=== PATIENT | male | born 1960 | race Caucasian/White ===

== ENCOUNTER 2024-05-26 13:57 | Outpatient (AMB) | payer OTHER, SELFPAY ==
[2024-05-26 14:09] VITALS: BP 138/90; PULSE 62; TEMP 36.5; O2SAT 95; BMI 21.7
--- NOTE | 2024-05-26 14:09 | AM.OFFWIN_ITS ---
Intake Vital Signs 05/26/24 14:09 Height 6 ft 3 in Weight 173 lb 4 oz BMI 21.7 BP 138/90 H Blood Pressure Location Lt brachial Position Sitting Pulse 62 Pulse Source Pulse Oximeter Temp 97.7 F Temp Source Oral Pulse Oximetry (%) 95 Oxygen Delivery Method Room Air Intake Visit Reasons: EP High BP/no symptoms Intake Note: Pt is here today for high blood pressure. Pt had an at home blood pressure taking and mention to him that he has high blood pressure. Also pt will like kidney disease test. Allergies No Known Allergies Allergy (Verified 05/26/24 14:09) HPI EP High BP/no symptoms HPI Details This note is constructed using voice recognition software. While every effort has been made to ensure accuracy, nurse gynecology errors may have been included. The patient is a 63 year old male who presents to the clinic today with concerns for high blood pressure. Patient reports that he has no previous history of h igh blood pressure, had an insurance evaluation in his home, with slightly elevated blood pressure couple of months ago. He has been checking his blood pressure ever since, and has had blood pressures ranging from 120/80 to 150/90. He denies chest pain, palpitations, lightheadedness, new headaches. He has a primary care appointment scheduled for August, but has not been seen in the past several years. He has no family history of cardiac disease. [facility] Social History (Updated 08/26/20 @ 09:39 by Charles Romero PA-C) Alcohol intake: current Alcohol intake frequency: a few times a month Current occupational status: employed Current occupation: [employer]. Review of Systems Const All systems reviewed & are unremarkable except as noted in HPI and below Physical Exam Vital Signs: Last Vital Signs Temp 97.7 F 05/26/24 14:09 Pulse 62 05/26/24 14:09 BP 138/90 H 05/26/24 14:09 Pulse Ox 95 05/26/24 14:09 Oxygen Delivery Method Room Air 05/26/24 14:09 BMI result Body Mass Index 21.7 Const General: cooperative, healthy appearing, comfortable, no acute distress and well developed Orientation/consciousness: patient oriented x3 Limitations: no limitations Neck Neck: Yes normal visual inspection and Yes full ROM Resp Effort & Inspection: normal respiratory effort and able to speak in complete sentences Auscultation: clear to auscultation bilaterally Cardio Rate: regular rate Rhythm: regular rhythm Heart sounds: normal S1 and S2 Skin General skin exam: no rashes or lesions noted Neuro General: patient oriented x3 Extrem General: Yes normal to inspection Assessment & Plan Assessment & Plan (1) Elevated BP without diagnosis of hypertension: Code(s): R03.0 - Elevated blood-pressure reading, without diagnosis of hypertension Plan: Advised ongoing monitoring of blood pressure at home, reviewed appropriate clinical blood pressure monitoring. Advised patient to avoid salt, increase hy dration, and begin daily walks to help facilitate. Advised patient to keep appointment with PCP in August as previously scheduled. Plan See above for full details and plan. Coding Level of Care Code Est Pt Level 3 (73605) Diagnoses Elevated BP without diagnosis of hypertension R03.0
== END 2024-05-26 15:07 | disposition home or self-care (01) ==
PROVIDERS: PCP Physician Assistant; Visit Provider Registered Nurse
DX: R03.0 Elevated blood-pressure reading, without diagnosis of hypertension (principal)

== ENCOUNTER 2024-08-19 10:57 | Outpatient (AMB) | payer MEDICARE, SELFPAY ==
--- NOTE | 2024-08-19 11:01 | MHC.PC.OV ---
Vital Signs 08/19/24 11:02 Height 6 ft 3 in Weight 176 lb 2 oz BMI 22.0 BP 128/76 Blood Pressure Location Lt brachial Position Sitting Pulse 70 Pulse Source Pulse Oximeter Temp 96.9 F Temp Source Temporal Artery Scan Pulse Oximetry (%) 98 Oxygen Delivery Method Room Air Intake Visit Reasons: New Appt New Patient requesitng an PE Saw Boss Required: No Accompanied by: Self / Same As Patient Allergies No Known Allergies Allergy (Verified 08/19/24 11:18) Medication List - Last Reconciled 08/19/24 by Charles Romero PA-C No Known Home Meds Tobacco use date assessed: 08/19/24 Fall risk assessment: 1 Fall in past year Last assessed Fall Risk: 08/19/24 Dental Screening Dental Screen Date: 08/19/24 Did you have a dental visit in the last 12 months?: Yes Did you have a dental problem in the last 6 months where you did not have access to dental care?: No Was dental information given to patient?: Patient has dentist HPI New Appt New Patient requesitng an PE HPI Details Patient is a 64-year-old male here today for annual physical. Patient does not have any significant past medical history. Has had his Cologuard done in 2019 which was negative and needed a repeat 3 years. He reports doing stool card (FIT test) with [facility] and reports it was negative. Concern--> reports having right wrist pain particularly when doing fine motor activities with his right upper extremity. 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 .. Noturia: has somewhat bothered by nocturia and has been trying supplements that have not worked. .. Vaccine: Uninterested in vaccines [facility] Surgical History S/P ACL repair Family History Mother No problems noted. Father Kidney disease Daughter No problems noted. Social History Housing: House Alcohol intake: current Alcohol intake frequency: holidays/special occasions only Alcohol type: beer Patient Tobacco Use Status: Never used Tobacco e-Cigarette/Vaping Use: Never Used Second Hand Smoke Exposure: No service: No Current occupational status: employed Current occupation: [employer]. Cognitive needs: No Hearing needs: Yes Vision needs: Yes Questionnaire PHQ-9 Over the last 2 weeks, how often have you been bothered by any of the following problems? 1. Little interest or pleasure in doing things: not at all 2. Feeling down, depressed, or hopeless: not at all 3. Trouble falling or staying asleep, or sleeping too much: not at all 4. Feeling tired or having little energy: not at all 5. Poor appetite or overeating: not at all 6. Feeling bad about yourself - or that you are a failure or have let yourself or your family down: not at all 7. Trouble concentrating on things, such as reading the newspaper or watching television: not at all 8. Moving or speaking so slowly that other people could have noticed. Or the opposite - being so fidgety or restless that you have been moving around a lot more than usual: not at all 9. Thoughts that you would be better off or of hurting yourself in some way: not at all Total score: 0 Depression Screening Interpretation: Negative Depression Screening Done: Yes 32890 - PHQ-9 Billing: Yes Source: Developed by Drs. Avila Deleon, Marge Dawson, Teto Wilson and colleagues, with an educational barbara from [employer]. Thrive Questionnaire Date Thrive assessed: 08/19/24 I am a: Patient What is your living situation today?: I have a steady place to live Within the past 12 months, did the food you bought not last and you didn't have the money to get more?: Never true Within the past 12 months, did you worry whether your food would run out before you got money to buy more?: Never true Do you have trouble paying for medicines?: I choose not to answer this question Do you have trouble getting transportation to medical appointments?: No Do you have trouble paying your heating and electricity bill?: No Do you have trouble taking care of your child, family member or friend?: No Do you have trouble with day-to-day activities such as bathing, preparing meals, shopping, managing finances, etc.?: No Are you currently unemployed and looking for a job?: No Are you interested in more education?: I choose not to answer this question Please select the resources that you would like help with: None Currently or been in a relationship where the following occur: No concerns reported THRIVE Score: 0 AUDIT C Alcohol Use Questionnaire (AUDIT-C) 1. How often do you have a drink containing alcohol?: Monthly or less 2. How many drinks containing alcohol do you have on a typical day when you are drinking?: 1 or 2 3. How often do you have six or more drinks on one occasion?: Never Total Score: 1 DEEDEE-7 AMB Questionnaire DEEDEE-7 Date DEEDEE - 7 assessed: 08/19/24 Feeling nervous, anxious, or on edge: 0 = Not at all Not being able to stop or control worryin = Not at all Worrying too much about different things: 0 = Not at all Trouble relaxin = Not at all Being so restless that it is hard to sit still: 0 = Not at all Becoming easily annoyed or irritable: 0 = Not at all Feeling afraid as if something awful might happen: 0 = Not at all Total DEEDEE-7 score (0-4 normal; 5-9 mild; 10-14 moderate; 15-21 severe): 0 Source: Developed by Drs. Avila Deleon, Marge Dawson, Teto Wilson and colleagues, with an educational barbara from [employer]. DEEDEE-7 Assessment Billing DEEDEE-7 Assessment Tool: DEEDEE-7 Assessment 22697 Review of Systems Const Denies body aches, Denies chills, Denies excessive sweating, Denies fatigue, Denies fever(s) and Denies headache(s) Eyes Denies blurry vision ENT Denies dysphagia, Denies vertigo, Denies dizziness, Denies headache(s), Denies hearing loss and Denies tinnitus Card Denies chest pain, Denies chest pain with activity, Denies syncope, Denies irregular heart rhythm and Denies dyspnea Resp Denies chest congestion, Denies cough, Denies hemoptysis, Denies dyspnea and Denies wheezing GI Denies abdominal pain, Denies melena, Denies hematochezia, Denies coffee ground emesis, Denies dysphagia, Denies diarrhea, Denies nausea and Denies vomiting Denies difficulty urinating, Denies dysuria, Denies urinary frequency, Denies urinary hesitancy and Denies urinary urgency Musc Denies arthralgias, Denies limited range of motion, Denies muscle cramps and Denies muscle weakness Skin/Breast Denies rash and Denies skin ulcer Neuro Denies Abnormal speech present, Denies confusion, Denies vertigo, Denies dizziness, Denies syncope, Denies headache(s), Denies memory loss and Denies seizure-like activity Psych Denies anxiety, Denies confusion, Denies depression, Denies memory loss, Denies panic attacks and Denies paranoia Endo Denies excessive sweating, Denies fatigue, Denies flushing, Denies polydipsia and Denies polyuria Aller/Immun Denies wheezing Physical exam (Primary Care) Vital Signs: Last Vital Signs Temp 96.9 F 08/19/24 11:02 Pulse 70 08/19/24 11:02 BP 128/76 08/19/24 11:02 Pulse Ox 98 08/19/24 11:02 Oxygen Delivery Method Room Air 08/19/24 11:02 BMI result Body Mass Index 22.0 Tobacco/Smoking Status: Tobacco use Status Tobacco use date assessed 08/19/24 08/19/24 11:15 Patient Tobacco Use Status Never used Tobacco 08/19/24 11:22 e-Cigarette/Vaping Use Never Used 08/19/24 11:22 PHQ-9: PHQ-9 Score PHQ-9: Total score 0 08/19/24 11:20 Depression Screening Interpretation: Negative Thrive Assessment: Date of Thrive Assessment Date Thrive assessed 08/19/24 08/19/24 11:15 Currently or been in a relationship where the following occur: No concerns reported Const General: cooperative, comfortable, no acute distress, alert and awake; No confusion Orientation/consciousness: oriented to person, oriented to place, patient oriented x3 and No confusion HENMT Head: Yes normocephalic Ears: external ears normal and TM's normal bilaterally Face and sinus: No sinus tenderness Mouth: Normal oral and palatal mucosa present and tongue normal Teeth and gingiva: dentition normal and gingiva normal Throat: Yes posterior oropharynx normal, Yes tonsils normal and Yes uvula midline Eyes Conjunctivae: conjunctivae normal Sclerae: sclerae normal Pupils: Equal, round and reactive pupils present EOM: EOMs intact bilaterally Direct Ophthalmoscopy: No no photophobia Neck Neck: Yes no lymphadenopathy, No tender and Yes no JVD Thyroid: Thyroid normal Carotids: no bruits Chest Chest palpation & inspection: no tenderness Resp Effort & Inspection: normal respiratory effort, no audible wheezes, not labored and no stridor Auscultation: no crackles, no rales, no rhonchi and no wheezes Cardio Jugular venous distension: no JVD Rate: regular rate, not bradycardic and not tachycardic Rhythm: regular rhythm Bruits: no carotid bruits Peripheral pulses: Peripheral pulses 2+ throughout GI Inspection: Yes normal to inspection, No abdominal wall ecchymosis and No visible herniation Palpation (GI): Soft to palpation, nontender, no guarding, not rigid and No hepatosplenomegaly present Auscultation: normoactive bowel sounds General: Yes no CVA tenderness Back/Spine/Pelvis Back: no CVA tenderness and No back tenderness Cervical Spine: cervical ROM normal Thoracic/Lumbar Spine: thoracic and lumbar spine normal to inspection, straight leg raise negative bilaterally, No thoraco-lumbar ROM limited and No lumbar spinal tenderness Skin Lesions: no lesions Rashes: no rashes Wounds: no wounds Neuro General: oriented to person, oriented to place, patient oriented x3, CN's II-XI intact bilaterally and No confusion Cranial nerves: Yes Equal, round and reactive pupils present and Yes Normal accommodation reflex present Cognition (Neuro): normal cognition Speech: No Abnormal speech present Gait exam (Neuro): Normal gait present Motor exam (neuro): 5/5 motor strength present throughout Extrem Right upper extremity: full ROM; no cyanosis Left upper extremity: full ROM; no cyanosis Right lower extremity: no edema Left lower extremity: no edema Psych Appearance: grossly normal Mental Status: mental status grossly normal Affect: normal affect Attitude: cooperative Thought process: Normal thought process present Coding Level of Care Code New Pt Prev Care >65yr (29221) Diagnoses Annual physical exam Z00. Right wrist tendinitis M77.8 Additional Codes DEEDEE-7 Assessment Billing - DEEDEE-7 Assessment Tool: DEEDEE-7 Assessment 24878 ([id number]) PHQ-9 - 09231 - PHQ-9 Billing: Yes ([id number]) Assessment & Plan Assessment & Plan (1) Annual physical exam: Code(s): Z00. - Encounter for general adult medical examination without abnormal findings Category: Medical Plan: As per HPI (2) Right wrist tendinitis: Code(s): M77.8 - Other enthesopathies, not elsewhere classified Category: Medical Plan: Has been experiencing wrist tendinitis to which she will try [id number] NSAIDs. Has upcoming appointment with a orthopedic practice in [place]. Orders: Orders Prostate Specific Antigen Scr Today Z12.5 - Encounter for screening for malignant neoplasm of prostate, Z13.1 - Encounter for screening for diabetes mellitus Complete Blood Count no Diff Today Z13.1 - Encounter for screening for diabetes mellitus Comprehensive [place]. Panel Fast Today Z13.1 - Encounter for screening for diabetes mellitus
[2024-08-19 11:02] VITALS: BP 128/76; PULSE 70; TEMP 36.1; O2SAT 98; BMI 22.0
== END 2024-08-19 11:40 | disposition home or self-care (01) ==
PROVIDERS: PCP Physician Assistant; Visit Provider Physician Assistant
DX: Z00.00 Encounter for general adult medical examination without abnormal findings (principal); M77.8 Other enthesopathies, not elsewhere classified

== ENCOUNTER → 2024-08-19 10:57 | Outpatient (BNVA) | payer MEDICARE, SELFPAY | PROVIDERS: PCP Physician Assistant; Visit Provider Physician Assistant | DX: Z00.00 Encounter for general adult medical examination without abnormal findings (principal); M77.8 Other enthesopathies, not elsewhere classified | CPT/HCPCS: 96127; 99387 ==

== ENCOUNTER 2024-08-28 08:53 | Outpatient (REF) | payer MEDICARE, SELFPAY ==
[2024-08-28 09:41] LABS: Hemoglobin 14.7 g/dl (14.0-18.0); Mean Corpuscular Hemoglobin 30.1 pg (27.0-33.0); Mean Corpuscular Volume 86.1 fL (80.0-98.0); Mean Platelet Volume 10.7 fL (9.4-12.4); Platelet Count 164 X10*3/uL (160-400); Red Blood Count 4.88 X10*6/uL (4.60-5.80); Red Cell Distribution Width 11.9 % (11.0-16.0); White Blood Count 4.3 X10*3/uL (4.8-10.8)
--- OUTSIDE RECORDS SUMMARY | 2024-08-28 09:50 | XMS_ITS | Data Portability ---
Author Organization [facility], , [facility] Address [address] [place] [address] Assessment No assessment recorded. Plan of Treatment Reminders Order Date Submit Date Provider Last Modified By Organization Details Last Modified Time Details Appointments None record ed. Lab None record ed. Referral None record ed. Procedures None record ed. Surgeries None record ed. Imaging None record ed. Medication Orders None record ed. Patient TargetsNo targets recorded. Patient Instructions Encounter Date Encounter Id Patient Instructions Last Modified By Organization Details Last Modified Time 02/12/2015 [id number] Exam started in AM and completed in PM. Astigmatism and presbyopia. Good ocular health. Discussed eye vitamins and sunglasses per patient request. FU 1 year. [email or web address] Not available 02/12/2015 16:16:42 Reason for Referral None Reported. 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 3 03:09:07 Presbyopia 13990819 Active 2004 Fito Castillo, OD [address] [place] [address], [id number] , [facility] 5 16:16:42 Problem Notes None recorded. Procedures Surgical History Date Name Laterality Status Provider Name and Address Organization Details Recorded Time 02/12/2015 Refraction completed Leidy Sanchez MA [facility] 02/12/2015 08:19:56 Imaging Results None recorded. Procedure Notes None recorded. Medical Equipment None Reported. Allergies No known drug allergies Medications Not known to be on any medication Vitals None Recorded Social History None recorded. Functional Status None recorded. Mental Status None recorded. Family History Nothing Reported. Medical History No medical history recorded. Past Encounters Encounter ID Performer Location Encounter Start Date Encounter Closed Date Diagnosis/Indication Diagnosis SNOMED-CT Code Diagnosis ICD10 Code Diagnosis Note [id number] [facility], [facility] [place] [address] 07/05/2004 09:52:36 07/05/2004 14:50:34 [id number] [facility], [facility] [place] [address] 08/20/2006 16:12:44 08/21/2006 08:03:04 [id number] [facility], [facility] [place] [address] 10/31/2007 14:04:42 11/01/2007 09:01:15 [id number] [facility], [facility] [place] [address] 02/12/2015 08:13:10 03/09/2015 12:10:36 Ophthalmic examination and evaluation 91899703 Regular astigmatism 24381461 Presbyopia 27642644 Health Concerns Section Related Observation LastModified by Organization Detai ls LastModified Time None Recorded Concern Status LastModified by Organization Details LastModified Time None Recorded Advance Directives Directive None Recorded Payers Encounter Date Sequence Insurance Name Policy Number Policy Connell Covered Member ID Connell Member ID Guarantor Name 07/05/2004 1 [facility] [id number] Alfredo Torres [id number] Alfredo Torres 08/20/2006 1 [facility] [id number] Alfredo Torres [id number] Alfredo Torres 10/31/2007 1 [facility] (O) Alfredo Torres [id number] Alfredo Torres 02/12/2015 1 [facility] NET PLAN (MEDICAID HMO) [id number] Alfredo Torres [id number] Alfredo Torres
[2024-08-28 10:10] LABS: Alanine Aminotransferase 24 U/L (0-40); Alkaline Phosphatase 56 U/L (39-117); Anion Gap 11 (12-20); Aspartate Amino Transferase 23 U/L (5-37); Bilirubin Total 0.7 mg/dL (0.0-1.0); Blood Urea Nitrogen 26 mg/dL (9-16); Carbon Dioxide 28 mmol/L (22-29); Chloride 108 mmol/L (96-108); Estimated Glomerular Filt Rate > 60; Glucose Fasting 85 mg/dL (60-99); Sodium 143 mmol/L (135-145)
[2024-08-28 10:27] LABS: Prostate Specific Antigen Scr 2.06 ng/mL (<0.05-4.0)
== END 2024-08-28 08:54 | disposition home or self-care (01) ==
LOC: HO.LAB 08:53
PROVIDERS: PCP Physician Assistant; Visit Provider Physician Assistant
DX: Z13.1 Encounter for screening for diabetes mellitus (principal); Z12.5 Encounter for screening for malignant neoplasm of prostate
CPT/HCPCS: 36415; 80053; 84153; 85027